=== PATIENT | female | born 1990 | race Caucasian/White ===

== ENCOUNTER 2021-10-28 09:13 | Emergency (ER) | payer OTHER ==
[~2021-10-28] VITALS: Ht 149.9 cm; Wt 125.0 kg
[2021-10-28 10:32] VITALS: BP 116/57
== END 2021-10-28 11:15 | disposition home or self-care (01) ==
LOC: EMS 09:17
DX: Z11.1 Encounter for screening for respiratory tuberculosis (principal)
CPT/HCPCS: 71045; 99283